=== PATIENT | female | born 1960 ===

== ENCOUNTER 2021-06-05 12:45 | Inpatient (IN) | payer OTHER ==
[2021-06-11] MEDS ORDERED: DICLOFENAC SODI75 MG (09:31)
[2021-06-11] MEDS ORDERED: GABAPENTIN300 M2 (09:31)
== END 2021-06-13 16:38 | disposition home or self-care (01) | DRG 331 ==
LOC: SURH 06-10 05:56 → O/R 06-10 05:56 → SURH 06-10 12:45
PROVIDERS: ADMIT Colon & Rectal Surgery; ATTEND Colon & Rectal Surgery
PROC: 0DBP4ZZ Excision of Rectum, Percutaneous Endoscopic Approach (ICD-10-PCS; 2021-06-10)
PROC: 0DTN4ZZ Resection of Sigmoid Colon, Percutaneous Endoscopic Approach (ICD-10-PCS; principal; 2021-06-10 15:30)
DX: K57.32 Diverticulitis of large intestine without perforation or abscess without bleeding (principal); R59.0 Localized enlarged lymph nodes; N18.2 Chronic kidney disease, stage 2 (mild)